=== PATIENT | male | born 1950 | race Caucasian/White ===

== ENCOUNTER 2017-09-30 12:39 | Inpatient (IN) | payer OTHER ==
[~2017-09-30] VITALS: Ht 190.5 cm; Wt 97.5 kg
[~2017-09-30 12:39] MED LIST: ACET-7568 PO; ADA60 PO; ASCO500C19 PO; BACL10TA4 PO; DOCU100C5 PO; FERR-20 PO; FURO20TA8 PO; HALO1TAB21 PO; LOSA25TA22 PO; PANT40VI IV; POTA10CE85 PO; [UNRECOGNIZED DRUG - CODE] PO
--- NOTE | 2017-09-30 12:40 | NUR ---
Patient BIBA BLS, transferred to bed 10. RN evaluating patient at bedside.
[2017-09-30 12:43] VITALS: BP 148/93
--- NOTE | 2017-09-30 12:45 | NUR ---
PATIENT GEOFFREY PRESENTS TO ED WITH ALOC, NECK TENDERNESS, DOES NOT REMEMBER FALLING FOUND ON THE FLOOR. NEURO CHECK PERRL, FOLLOWS SIMPLE COMMANDS. SKIN IS PINK/WARM/DRY; AAOX2 WITH EVEN AND STEADY GAIT; LUNGS CLEAR BL; HR EVEN AND REGULAR; VSS; PATIENT POSITIONED FOR COMFORT; HOB ELEVATED; BEDRAILS UP X2; BED DOWN. ER MD MADE AWARE OF PT STATUS.
[2017-09-30] MEDS ORDERED: NACL 0.9% 1,000 ML IV SCH (12:48)
--- NOTE | 2017-09-30 12:55 | NUR ---
Dr. Zelaya evaluating patient at bedside.
--- NOTE | 2017-09-30 13:01 | NUR ---
XRAY AT BEDSIDE
--- NOTE | 2017-09-30 13:09 | NUR ---
pt to radiology via [facility]
[2017-09-30 13:17] LABS: HEMOGLOBIN 14.9 g/dL (12.0-18.0); MEAN CORPUSCULAR HEMOGLOBIN 30 pg (27-31); MEAN CORPUSCULAR HGB CONC 33 g/dL (33-37); MEAN CORPUSCULAR VOLUME 89.9 fL (80-94); PLATELET COUNT (AUTO) 275 K/uL (140-450); RED BLOOD CELL COUNT(AUTO) 5.01 MIL/uL (4.20-6.10); RED CELL DISTRIBUTION WIDTH 13.7 % (11.6-13.7); WHITE BLOOD COUNT (AUTO) 20.6 K/uL (4.8-10.8)
--- NOTE | 2017-09-30 13:27 | NUR ---
returned from radiology via [facility]
[2017-09-30 13:32] LABS: MONOCYTES % (MANUAL) 5 % (5-12); PROTHROMBIN TIME 11.5 secs (10.8-13.4)
[2017-09-30 13:33] LABS: LYMPHOCYTES % (MANUAL) 5 % (20-46)
[2017-09-30 13:52] LABS: ALBUMIN 3.4 g/dL (3.4-5.0); ANION GAP 22.7 (8-16); CARBON DIOXIDE 19.5 mmol/L (21-32); TOTAL BILIRUBIN 0.8 mg/dL (0.0-1.0)
[2017-09-30 13:54] LABS: POTASSIUM 6.2 mmol/L (3.5-5.1)
[2017-09-30] MEDS ORDERED: DEXTROSE 50% 50 ML SYR IVP ONE (14:10)
[2017-09-30] MEDS ORDERED: ASPIRIN 81 MG TAB.CHEW PO ONE (14:10)
[2017-09-30] MEDS ORDERED: INSULIN REGULAR, HUMAN 100 UNIT/ML VIAL IV ONE (14:10)
--- NOTE | 2017-09-30 14:12 | NUR ---
TRISTAN, PT'S SISTER CALLED AND INQUIRED ABOUT PT. STATES SHE WILL COME TO SEE PT ONCE HE'S ADMITTED.
[2017-09-30] MEDS ORDERED: LEVOFLOXACIN 500 MG/D5W PREMIX 100 ML IV ONE (14:15)
--- NOTE | 2017-09-30 15:00 | NUR ---
Leyda melgar in [facility] - 09/30/17 at 1629 by MEDJ andrew would like to be called once patient is admitted - Cristopher Newton
[2017-09-30] MEDS: NACL 0.9% 1,000 ML IV SCH ×2 (15:09→20:49)
[2017-09-30] MEDS ORDERED: ACETAMINOPHEN 325 MG TAB PO PRN (15:10)
[2017-09-30] MEDS ORDERED: DOCUSATE SODIUM 100 MG GELCAP PO PRN (15:10)
[2017-09-30] MEDS ORDERED: ONDANSETRON 4 MG/2 ML VIAL IM/IVP PRN (15:10)
[2017-09-30] MEDS ORDERED: hePARIN / DEXT 5% PREMIX 250 ML IV SCH ×2 (15:20→18:00)
[2017-09-30] MEDS ORDERED: HEPARIN PER PHARMACY MC PRN ×2 (15:20→18:00)
[2017-09-30 15:28] LABS: APPEARANCE,URINE CLOUDY (CLEAR); BILIRUBIN,URINE 1+ (NEGATIVE); BLOOD, URINE 3+ (NEGATIVE); LEUKOCYTE ESTERASE ,URINE 2+ (NEGATIVE); NITRITE, URINE NEGATIVE (NEGATIVE); PH,URINE 5.5 (5.0-9.0); UGLUCOSE NEGATIVE (NEGATIVE)
[2017-09-30] MEDS ORDERED: MECLIZINE 25 MG TAB PO PRN ×2 (15:40→16:05)
[2017-09-30 16:17] LABS: CHOL/HDL RATIO 3.1 (1-4.5); FREE T4 (FREE THYROXINE) 1.22 ng/dL (0.76-1.46); MAGNESIUM 2.9 mg/dL (1.8-2.4); PHOSPHORUS 5.7 mg/dL (2.5-4.9); THYROID STIMULATING HORMONE 1.41 uIU/mL (0.34-3.74)
[2017-09-30 16:25] LABS: COLOR,URINE AMBER (YELLOW)
--- NOTE | 2017-09-30 16:28 | NUR ---
PATIENT BACK FROM CT
[2017-09-30 16:29] LABS: RBC,URINE 0-5 (RARE) /HPF (0-5); WBC,URINE TOO MANY TO COUNT /HPF (0-5)
--- NOTE | 2017-09-30 16:53 | NUR ---
Patient will be admitted to care of DR. ARMENTA. Admited to ICU FOR CONVENIENCE. Will go to BED 2. Belongings list completed. Report to DREW PALACIOS.
--- NOTE | 2017-09-30 17:05 | NUR ---
RECEIVED BEDSIDE REPORT FROM WATER RESOURCE ENGINEER, FOR CONTINUITY OF CARE. PATIENT IS AAOX3, ABLE TO FOLLOW COMMANDS AND MAKES NEEDS KNOWN. HX OF DEMENTIA. PATIENT SKIN IS WARM, DRY AND INTACT, REDNESS TO BUTTOCKS AND RIGHT HIP, AND SCAB WITH ECCHYMOSIS TO HIS RIGHT KNEE. HE HAS A PERIPHERAL IV SITE TO HIS LEFT HAND, 20 GAUGE, ASYMPTOMATIC, PATENT AND INTACT, WITH NS RUNNING AT 100ML/HR. HE IS ON ROOM AIR, CAP REFILL LESS THAN 3 SECS, SR ON MONITOR. HOB IS ELEVATED TO 30 DEGREES IN A LOW POSITION, CALL LIGHT WITHIN REACH, NO SIGNS OF ACUTE DISTRESS NOTED AT THIS TIME. WILL CONTINUE TO MONITOR
[2017-09-30] MEDS ORDERED: BACLOFEN 10 MG TAB PO PRN (18:10)
[2017-09-30] MEDS ORDERED: LOSA50TA39 PO (18:19)
[2017-09-30] MEDS ORDERED: SPIMDI INH (18:19)
[2017-09-30] MEDS ORDERED: METO50TE2 PO (18:19)
[2017-09-30] MEDS ORDERED: ASCO500T45 PO (18:19)
[2017-09-30] MEDS ORDERED: ADA90 PO (18:19)
[2017-09-30] MEDS ORDERED: MULT-1328 PO (18:19)
[2017-09-30] MEDS ORDERED: HYDR100T79 PO (18:19)
[2017-09-30] MEDS ORDERED: PANT40EC PO (18:19)
[2017-09-30] MEDS ORDERED: TRAM50TA1 PO (18:21)
[2017-09-30] MEDS ORDERED: traMADol 50 MG TAB PO PRN (18:25)
--- NOTE | 2017-09-30 18:28 | NUR ---
PATIENT'S SISTER AT BEDSIDE, UPDATED ON PATIENT'S CONDITION. NO SIGNS OF DISTRESS NOTED AT THIS TIME
[2017-09-30] MEDS ORDERED: DEXTROSE 50% 50 ML SYR IVP PRN (18:30)
[2017-09-30] MEDS ORDERED: INSULIN LISPRO SLIDING SCALE 100 UNITS/ML VIAL SUBQ PRN (18:30)
--- NOTE | 2017-09-30 18:40 | NUR ---
PATIENT'S BP IS 193/108, DR. ARMENTA AWARE, WILL FOLLOW UP ON ANY ORDERS.
--- NOTE | 2017-09-30 19:10 | NUR ---
ENDORSED BEDSIDE REPORT TO DIE TECHNICIAN RN, MENDY, FOR CONTINUITY OF CARE. PATIENT PRESENTS NO SIGNS OF ACUTE DISTRESS AT THIS TIME.
--- NOTE | 2017-09-30 19:30 | NUR ---
RECEIVED PT FROM DAY NURSE, NO ACUTE DISTRESS NOTED. WILL CONTINUE TO MONITOR.
--- NOTE | 2017-09-30 19:32 | NUR ---
PT AWAKE SITTING UP IN BED, SISTER @ BEDSIDE. PT AAOX2 S/P TBI SLOW SPEECH NOTED. PT FOLLOWING SIMPLE COMMANDS. LUNGS CLEAR/ DIMINISHED @ BASES. SR 90S NO EDEMA NOTED. ABD SOFT NON DISTENDED. PT INCONTINENT TO URINE. REDNESS NOTED TO BUTTOCKS AND BILATERAL KNEES. PERIPHERAL IV TO L HAND WITH NS IVF RUNNING. NO OTHER S/S OF ACUTE DISTRESS NOTED. WILL CONTINUE TO OBSERVE.
--- NOTE | 2017-09-30 19:45 | NUR ---
US TECH @ BEDSIDE.
[2017-09-30 20:00] VITALS: BP 177/71
[2017-09-30] MEDS ORDERED: hydrALAZINE 25 MG TAB PO SCH ×2 (20:00)
[2017-09-30] MEDS ORDERED: SODIUM POLYSTYRENE 15 GM/60 ML UDBTL PO SCH (20:00)
[2017-09-30] MEDS ORDERED: hydrALAZINE 25 MG TAB ONE (20:15)
[2017-09-30] MEDS: FERROUS SULFATE 325 MG TABEC PO SCH (20:44)
[2017-09-30] MEDS: hePARIN / DEXT 5% PREMIX 250 ML IV SCH (20:48)
[2017-09-30] MEDS: HALOPERIDOL 1 MG TAB PO SCH (21:00)
[2017-09-30] MEDS: BLOOD GLUCOSE MONITORING 1 DEV DEV FS SCH (21:06)
[2017-09-30] MEDS: HYDROcodone/APAP 7.5/325 MG 1 TAB PO PRN (21:09)
[2017-09-30] MEDS ORDERED: HALOPERIDOL IM 5 MG/ML VIAL ONE (21:45)
--- NOTE | 2017-09-30 21:45 | NUR ---
HEPARIN DRIP STARTED PER MD ORDER @ 2047. RUNNING @ 960 UNITS/HR. NO S/S OF ACUTE DRUG REACTION NOTED. NO BLEEDING NOTED. WILL CONTINUE TO MONITOR.
--- NOTE | 2017-09-30 21:50 | NUR ---
NOTIFIED DR. FLOREZ ABOUT NOT HAVING HALDOL PO. PT COMFORTABLE NO S/S OF AGITATION NOTED. MD AWARE, MD STATED TO HOLD DOSE TONIGHT AND GIVE TOMORROW PER EMAR ORDERS. WILL CONTINUE TO OBSERVE.
--- NOTE | 2017-09-30 22:45 | NUR ---
PT PLACED ON 2L O2 VIA NASAL CANNULA.
[2017-09-30] MEDS: MORPHINE SULFATE 4 MG/ML SYR IVP PRN (23:42)
[2017-10-01] VITALS (7 sets, daily range): BP systolic 139–191; BP diastolic 60–117
--- NOTE | 2017-10-01 00:15 | NUR ---
PT ASLEEP IN BED; NO S/S OF ACUTE DISTRESS NOTED. WILL CONTINUE TO OBSERVE.
--- NOTE | 2017-10-01 03:36 | NUR ---
RECEIVED PTT RESULT 69, THERAPEUTIC ON HEPARIN DRIP. NO CHANGES. WILL CONTINUE TO MONITOR.
--- NOTE | 2017-10-01 06:00 | NUR ---
MD @ BEDSIDE. NO ACUTE DISTRESS NOTED. WILL CONTINUE TO MONITOR.
[2017-10-01] MEDS: PANTOPRAZOLE 40 MG TABEC PO SCH (06:53)
[2017-10-01] MEDS: BLOOD GLUCOSE MONITORING 1 DEV DEV FS SCH ×4 (07:17→20:13)
[2017-10-01 07:22] LABS: HEMATOCRIT 41.1 % (36-52); HEMOGLOBIN 13.5 g/dL (12.0-18.0); MEAN CORPUSCULAR HEMOGLOBIN 30 pg (27-31); MEAN CORPUSCULAR HGB CONC 33 g/dL (33-37); MEAN CORPUSCULAR VOLUME 89.9 fL (80-94); PLATELET COUNT (AUTO) 231 K/uL (140-450); RED BLOOD CELL COUNT(AUTO) 4.57 MIL/uL (4.20-6.10); RED CELL DISTRIBUTION WIDTH 13.7 % (11.6-13.7); WHITE BLOOD COUNT (AUTO) 20.7 K/uL (4.8-10.8)
--- NOTE | 2017-10-01 07:28 | NUR ---
REPORT GIVEN TO DAY NURSE. NO ACUTE DISTRESS. WILL CONTINUE TO MONITOR.
--- NOTE | 2017-10-01 07:30 | NUR ---
RECEIVED BEDSIDE REPORT. PT ABLE TO OPEN EYES WHILE DOING INITIAL ASSESSMENT. BEDSIDE MONITOR SHOWS [facility] O2 NC 2L/MIN, O2 SAT 94%. IVS TO LEFT HAND RUNNING NS AT 60 MLS/HR AND HEPARIN 960 UNITS/HR SEPARATELY. BOTH SITE INTACT AND PATENT. SKIN NON INTACT DUE TO PT HAD FALL YESTERDAY. HOB ELEVATED 30 DEGREES WITH LOW BED POSITION. CALL LIGHT IN REACH, WILL CONTINUE TO MONITOR.
[2017-10-01 07:56] LABS: ANION GAP 20.7 (8-16); CARBON DIOXIDE 19.9 mmol/L (21-32); POTASSIUM 5.6 mmol/L (3.5-5.1)
[2017-10-01] MEDS ORDERED: metFORMIN 500 MG TAB PO SCH (08:00)
[2017-10-01 08:04] LABS: MAGNESIUM 2.6 mg/dL (1.8-2.4); PHOSPHORUS 6.3 mg/dL (2.5-4.9)
[2017-10-01] MEDS: ASCORBIC ACID 500 MG TAB PO SCH (08:19)
[2017-10-01] MEDS: ASPIRIN 81 MG TAB.CHEW PO SCH (08:19)
[2017-10-01] MEDS: FERROUS SULFATE 325 MG TABEC PO SCH (08:20)
[2017-10-01] MEDS: NIFEdipine 90 MG TABER PO SCH (08:20)
[2017-10-01 08:28] LABS: BASOPHILS % (MANUAL) 0 % (0-2); EOSINOPHILS % (MANUAL) 0 % (0-4); LYMPHOCYTES % (MANUAL) 7 % (20-46); MONOCYTES % (MANUAL) 8 % (5-12)
[2017-10-01] MEDS: METOPROLOL SUCCINATE 50 MG TABER PO SCH (08:30)
[2017-10-01] MEDS ORDERED: NON-FORMULARY ITEM (Potassium Chloride 1 CAP) PO SCH (09:00)
[2017-10-01] MEDS ORDERED: NON-FORMULARY ITEM (Tiotropium Bromide* (Spiriva Mdi*) 1 CAP) INH SCH (09:00)
[2017-10-01] MEDS ORDERED: ATORVASTATIN 20 MG TAB PO SCH (09:00)
[2017-10-01] MEDS ORDERED: POTASSIUM CHLORIDE 10 MEQ TABER PO SCH (09:00)
[2017-10-01] MEDS ORDERED: LOSARTAN 50 MG TAB PO SCH (09:00)
[2017-10-01] MEDS ORDERED: NON-FORMULARY ITEM (Multivitamin with Minerals (Multivitamins with Minerals) 1 TAB) PO SCH (09:00)
[2017-10-01] MEDS ORDERED: NON-FORMULARY ITEM (Hydralazine HCl (Hydralazine Hydrochloride) 25 MG) PO SCH (09:00)
--- NOTE | 2017-10-01 09:00 | NUR ---
HOLD DUE MEDS HALDO 1 MG DUE TO PT IS SLEEPY, CHARGE NURSE AWARE.
--- NOTE | 2017-10-01 10:05 | NUR ---
PT IS MORE AWAKE ALERT AT THIS TIME.
--- NOTE | 2017-10-01 10:15 | NUR ---
Received critical report doppler study ultrasound at 1013, reported to dr. Mehta.
[2017-10-01] MEDS: hydrALAZINE 25 MG TAB PO SCH ×3 (10:54→16:52)
[2017-10-01] MEDS: HALOPERIDOL 1 MG TAB PO SCH ×2 (10:55→20:10)
[2017-10-01] MEDS: MULTIVITAMIN/MINERALS 1 TAB PO SCH (10:55)
--- NOTE | 2017-10-01 10:55 | NUR ---
DID NOT GIVE K DUR 10 MG, WASTED.
[2017-10-01] MEDS ORDERED: SODIUM POLYSTYRENE 15 GM/60 ML UDBTL PO SCH ×2 (11:30→19:00)
[2017-10-01] MEDS ORDERED: IPRATROPIUM 0.02% 0.5 MG/2.5 ML NEBU INH SCH (11:30)
--- NOTE | 2017-10-01 11:45 | NUR ---
TOLD PT WE NEED TO INSERT MELGAR CATH TO MONITOR INTAKE AND OUT PUT, PT DOES NOT WANT TO INSERT, BENEFITS AND RISKS EXPLAINED TO PT, PT STILL DOES NOT WANT TO INSERT F/C . PT'S SISTER AT BEDSIDE.
[2017-10-01] MEDS ORDERED: hydrALAZINE 20 MG/ML VIAL IVP SCH (12:00)
--- NOTE | 2017-10-01 12:25 | NUR ---
DR. WILEY CALLED IN, NOTIFIED DR. WILEY PT DOES NOT WANT TO INSERT MELGAR CATH,PT'S SISTER ALSO HAD CONVERSATION WITH DR. WILEY. AFTER THAT, PT'S SISTER VERBALIZED UNDERSTANDING IT IS IMPORTANT TO INSERT MELGAR CATHETER.
--- NOTE | 2017-10-01 12:40 | NUR ---
EXPLAINED TO PT AGAIN REGARDING THE IMPORTANCE OF INSERTING F/C. TOLD PT I WILL TRY MY BEST TO BE GENTLE. PT AGREES TO INSERT AT THIS TIME. STERIL SKILL APPLIED .CLOUDY AND LIGHT BLOODY URINE NOTED. NOTIFIED DR. ARMENTA AND CHARGE NURSE.
[2017-10-01] MEDS: CLINDAMYCIN PHOS. 600MG/D5W PM 50 ML IV SCH ×2 (13:01→20:10)
[2017-10-01] MEDS ORDERED: METOPROLOL 5 MG/5 ML VIAL IV SCH (14:09)
--- NOTE | 2017-10-01 14:51 | NUR ---
ASSISTANT READING TEACHER AT BEDSIDE TO HAVE CONVERSATION WITH PT'S SISTER AND NEPHEW.
--- NOTE | 2017-10-01 15:24 | NUR ---
DR. WILEY IN TO SEE PT, WILL FOLLOW UP.
[2017-10-01] MEDS ORDERED: FUROSEMIDE 40 MG/4 ML VIAL IVP SCH ×2 (15:43→21:30)
[2017-10-01 15:44] LABS: CKMB RELATIVE INDEX 0.4 (0.0-2.5)
--- NOTE | 2017-10-01 16:23 | NUR ---
PT RESTING QUIETLY AT THIS MOMENT, BP 151/92, HR 81, O2 SAT 93%, FAMILY LEFT.
[2017-10-01] MEDS: SODIUM BICARBONATE 8.4% 100 MEQ in NACL 0.45% 1,000 ML IV SCH (16:47)
[2017-10-01 17:37] LABS: ANION GAP 21.4 (8-16); CARBON DIOXIDE 20.8 mmol/L (21-32); POTASSIUM 5.2 mmol/L (3.5-5.1)
[2017-10-01 17:43] LABS: CREATININE 5.9 mg/dL (0.7-1.3)
--- NOTE | 2017-10-01 18:21 | NUR ---
CALLED IN, UPDATED LAB REPORT K 5.9, PT DID NOT HAVE BM DURING DAY SHIFT AFTER KAYEXALATE GIVEN. DR. WILEY HAD CONVERSATION WITH PT'S NEPHEW, PER PT'S NEPHEW, HE HAD COMMUNICATION WITH PT'S SISTER ( HIS MOTHER), THEY DECIDED THEY DON'T WANT PT HAS DIALYSIS. DR. SONG ALSO IN TO TALK WITH PT'S FAMILY REGARDING DIALYSIS, PT'S FAMILY REFUSED.
--- NOTE | 2017-10-01 19:27 | NUR ---
RECEIVED REPORT FROM DAY NURSE. NO ACUTE DISTRESS NOTED. WILL CONTINUE TO MONITOR. HEPARIN DRIP @ 960 UNITS/HR. NA BICARB IVF RUNNING @ 130ML/HR.
--- NOTE | 2017-10-01 19:50 | NUR ---
PT AAOX1 FOLLOWING SIMPLE COMMANDS. LUNGS CLEAR, SR 90S NO EDEMA NOTED. R LEG ERYTHEMA NOTED, MD AWARE. ABD SOFT NON DISTENDED, TOLERATING PO INTAKE. MELGAR CATH IN PLACE, SEDIMENT YELLOW URINE. R LEG SCAB AND REDNESS OF R HIP AND BUTTOCKS NOTED. IV HEPARIN RUNNING @ 960 UNITS/HR AND NA BICARB @ 130 ML/HR. NO ACUTE DISTRESS NOTED. WILL CONTINUE TO MONITOR.
[2017-10-01] MEDS: hePARIN / DEXT 5% PREMIX 250 ML IV SCH (20:25)
[2017-10-01] MEDS ORDERED: MORPHINE SULFATE IV SCH (20:25)
[2017-10-01] MEDS ORDERED: NACL 0.9% IV SCH (20:25)
--- NOTE | 2017-10-01 21:25 | NUR ---
SPOKE WITH DR WILEY REGARDING PT STATUS NEW ORDERS. RECEIVED SEE CHART FOR FURTHER DETAILS
--- NOTE | 2017-10-01 22:15 | NUR ---
SPOKE WITH TRISTAN REGARDING CODE STATUS, SISTER TRISTAN AGREEABLE FOR DNR STATUS; HOWEVER DOES NOT WANT PALLIATIVE CARE/COMFORT MEASURES AT THIS TIME.
--- NOTE | 2017-10-01 22:35 | NUR ---
INFORMED DR. FLOREZ ABOUT SISTER TRISTAN DESIRE TO HAVE ОЛЬГА ON DNR CODE STATUS BUT DOES NOT WANT COMFORT MEASURES AT THIS TIME. AWARE. MD WILL D/C MORPHINE CHRISTINE
[2017-10-02] VITALS: BP 154/91
[2017-10-02] MEDS: SODIUM BICARBONATE 8.4% 100 MEQ in NACL 0.45% 1,000 ML IV SCH ×4 (00:01→16:59)
[2017-10-02 00:38] LABS: POTASSIUM 4.4 mmol/L (3.5-5.1)
[2017-10-02 00:39] LABS: ANION GAP 17.8 (8-16); CARBON DIOXIDE 22.6 mmol/L (21-32)
[2017-10-02 00:43] LABS: CREATININE 6.3 mg/dL (0.7-1.3)
--- NOTE | 2017-10-02 00:50 | NUR ---
INFORMED DR WILEY ABOUT ELEVATED BUN/CYLINDER DYER. AND CURRENT INTAKE/OUTPUT. MD AWARE. K+ WNL. AWARE NO NEW ORDERS WILL CONTINUE TO MONITOR.
--- NOTE | 2017-10-02 02:30 | NUR ---
PT ASLEEP RESTING COMFORTABLY NO S/S OF ACUTE DISTRESS WILL CONTINUE TO OBSERVE
[2017-10-02 04:00] VITALS: BP 152/91
--- NOTE | 2017-10-02 04:00 | NUR ---
AM CARE DONE. LINEN CHANGED. NO S/S OF ACUTE DISTRESS NOTED. WILL CONTINUE TO OBSERVE.
[2017-10-02] MEDS: CLINDAMYCIN PHOS. 600MG/D5W PM 50 ML IV SCH ×3 (05:32→20:50)
--- NOTE | 2017-10-02 06:00 | NUR ---
PT HAD VTACH X7 BEATS PT ASYMPTOMATIC; DR. FLOREZ MADE AWARE. WILL CONTINUE TO MONITOR.
[2017-10-02 06:07] LABS: BASOPHILS % (AUTO) 0.1 % (0.0-2.0); HEMATOCRIT 34.4 % (36-52); HEMOGLOBIN 11.5 g/dL (12.0-18.0); LYMPHOCYTES # (AUTO) 0.8 K/uL (2.0-11.5); LYMPHOCYTES % (AUTO) 5.7 % (20.5-51.1); MEAN CORPUSCULAR HEMOGLOBIN 30 pg (27-31); MEAN CORPUSCULAR HGB CONC 34 g/dL (33-37); MEAN CORPUSCULAR VOLUME 88.9 fL (80-94); MONOCYTES % (AUTO) 7.5 % (1.7-9.3); NEUTROPHILS # (AUTO) 11.9 K/uL (1.8-7.7); NEUTROPHILS % (AUTO) 86.7 % (42.2-75.2); PLATELET COUNT (AUTO) 216 K/uL (140-450); RED BLOOD CELL COUNT(AUTO) 3.87 MIL/uL (4.20-6.10); RED CELL DISTRIBUTION WIDTH 13.7 % (11.6-13.7); WHITE BLOOD COUNT (AUTO) 13.7 K/uL (4.8-10.8)
[2017-10-02] MEDS: BLOOD GLUCOSE MONITORING 1 DEV DEV FS SCH ×4 (06:32→21:15)
[2017-10-02] MEDS: PANTOPRAZOLE 40 MG TABEC PO SCH (06:32)
[2017-10-02 07:17] LABS: MAGNESIUM 2.7 mg/dL (1.8-2.4)
[2017-10-02 07:20] LABS: ANION GAP 20.6 (8-16); CARBON DIOXIDE 21.3 mmol/L (21-32); POTASSIUM 3.9 mmol/L (3.5-5.1)
[2017-10-02 07:22] LABS: CREATININE 6.6 mg/dL (0.7-1.3)
--- NOTE | 2017-10-02 07:31 | NUR ---
RECEIVED REPORT FROM NIGHT RN FOR CONTINUITY OF CARE. Addendum: 10/02/17 at 0906 by Francoise Alford RN PATIENT IS ASLEEP AT THIS TIME, BUT EASILY AROUSABLE BY NAME. SKIN WARM TO TOUCH WNL, TOENAILS ARE LONG AND THICKENED, NO EDEMA, WITH HAIR GROWTH AND FAINT BILATERAL PEDAL PULSES. R HAND PERIPHERAL IV PATENT AND INTACT TO 1/2 NS WITH 2 AMPS BICARB RUNNING. LEFT HAND PERIPHERAL IV PATENT AND INTACT TO HEPARIN AT 960 UNITS/HR. FC IN PLACE PATENT AND INTACT TO CLEAR YELLOW URINE IN MODERATE AMOUNT. ON AT 2LPM/NC. PATIENT IS ORIENTED TO PLACE AND NAME, BUT NOT TO DATE AND TIME. ABLE TO FOLLOW SIMPLE COMMANDS. ABLE TO MAKE HIS NEEDS KNOWN. CALL LIGHT WITHIN REACH. SAFETY MEASURES IN PLACE. WILL CONTINUE TO MONITOR PATIENT.
--- NOTE | 2017-10-02 07:40 | NUR ---
REPORT GIVEN TO DAY NURSE, NO ACUTE DISTRESS NOTED.
[2017-10-02 07:55] LABS: PHOSPHORUS 10.3 mg/dL (2.5-4.9)
[2017-10-02 08:00] VITALS: BP 121/68
[2017-10-02] MEDS: LEVOFLOXACIN 500 MG/D5W PREMIX 100 ML IV SCH (08:10)
[2017-10-02] MEDS: MULTIVITAMIN/MINERALS 1 TAB PO SCH (08:10)
[2017-10-02] MEDS: NIFEdipine 90 MG TABER PO SCH (08:11)
[2017-10-02] MEDS: HALOPERIDOL 1 MG TAB PO SCH ×2 (08:14→20:51)
[2017-10-02] MEDS: hydrALAZINE 25 MG TAB PO SCH ×3 (08:14→17:20)
[2017-10-02] MEDS: ASPIRIN 81 MG TAB.CHEW PO SCH (08:14)
[2017-10-02] MEDS: METOPROLOL SUCCINATE 50 MG TABER PO SCH (08:15)
[2017-10-02] MEDS: ASCORBIC ACID 500 MG TAB PO SCH (08:15)
--- NOTE | 2017-10-02 09:03 | NUR ---
PATIENT TAKEN TO CT FOR CT SCAN. Addendum: 10/02/17 at 1748 by Francoise Alford RN WRONG ENTRY
--- NOTE | 2017-10-02 09:15 | NUR ---
PATIENT CAME BACK FROM CT. HOOKED BACK UP TO MONITOR. WILL KEEP MONITORING PATIENT. Addendum: 10/02/17 at 1748 by Francoise Alford RN WRONG ENTRY
[2017-10-02] MEDS: CALCIUM ACETATE 667 MG TAB PO SCH ×3 (09:43→17:20)
--- NOTE | 2017-10-02 10:51 | NUR ---
PATIENT IS RESTING QUIETLY AT THIS TIME. NO COMPLAINTS OF PAIN MADE.
--- NOTE | 2017-10-02 11:19 | NUR ---
PATIENT HAS BEEN SCREENED AND CATEGORIZED HIGH NUTRITION RISK. PATIENT WILL BE SEEN WITHIN 1-2 DAYS OF ADMISSION. 10/01/17 - 10/02/[address]
--- NOTE | 2017-10-02 11:20 | NUR ---
PATIENT HAS BEEN SCREENED AND CATEGORIZED LOW NUTRITION RISK. PATIENT WILL BE SEEN WITHIN 7 DAYS OF ADMISSION. 10/07/[address] Addendum: 10/02/17 at [address] PLEASE DISREGARD ABOVE NOTE; ENTERED IN WRONG PATIENT. KIARRA QUIJANO RD
[2017-10-02 12:00] VITALS: BP 130/87
--- NOTE | 2017-10-02 13:35 | NUR ---
Anesthesiology Physician notes: I call Rayray Christ at I spoke to [facility] staff to discuss and confirm Patient's information. Per [facility] Patient has been residing at [facility] for about 2 years, patient gets his medications managed by the staff and is provided with meals and has also a caregiver that cares for his basic needs. Per Jody patient is able to return when he is stable and ready for discharge from [facility]. I thanked her for the information and ended the call.
--- NOTE | 2017-10-02 15:07 | NUR ---
10/02/17 RD INITIAL ASSESSMENT COMPLETED PLEASE REFER TO NUTRITION ASSESSMENT UNDER CARE ACTIVITY FOR ESTIMATED NUTRITIONAL NEEDS. 1. CONTINUE CCHO 60 GM DIET TOLERATED 2. RECOMMEND ADDING RENAL DIET 3. RD TO FOLLOW-UP 3-5 DAYS, MODERATE RISK MELODIE BATES, RD
[2017-10-02 16:00] VITALS: BP 136/86
[2017-10-02] MEDS ORDERED: LORazepam 1 MG TAB PO PRN (17:55)
[2017-10-02] MEDS ORDERED: MORPHINE SULFATE 100 MG in NACL 0.9% 90 ML IV SCH (18:30)
--- NOTE | 2017-10-02 18:50 | NUR ---
TRANSFERRED PATIENT TO TELE ROOM 122B. PATIENT IN STABLE CONDITION. REPORT GIVEN TO LENORE RUSSELL FOR CONTINUITY OF CARE.
--- NOTE | 2017-10-02 19:00 | NUR ---
PT TRANSFERRED TO FLOOR VIA GURNEY FROM ICU WITH 2 PHYSICAL SECURITY MANAGER'S. PT TRANSFERRED TO BED AND V/S ARE FOLLOWS T 98.6 P 85 B/P 138/86 R 20 02 95% WITH 4 LITERS VIA N/C. PT HAS 16fR MELGAR CATHETER DRAINING YELLOW URINE A SMALL AM'T OF BLOOD AND SEDIMENT NOTED IN URINE. PT IS AWAKE AND ALERT BUT NOT TALKING AT THIS TIME. EYES OPEN SPONTANOUSLY AND THERE APPEARS TO BE A SMALL AMOUNT OF YELLOW DRAINAGE AROUND THE SCLERA OF LEFT EYE. PT HAS 2 PERIPHERRAL IV SITES ONE ON BACK OF LEFT HAND AND ONE ON BACK OF RIGHT HAND BOTH ARE 20G. NO S/S OF DISTRESS NOTED FORM PT AT THIS TIME. AT BEDSIDE EVALUATING PT.
--- NOTE | 2017-10-02 19:35 | NUR ---
TRANSFER OF CARE FROM DAY SHIFT TO HEALTH INFORMATICS SPECIALIST CHRISTOFER RUSSELL.
--- NOTE | 2017-10-02 19:36 | NUR ---
RECEIVED REPORT FROM DAY SHIFT NURSE. PT IN BED,AAOX2. ON O2 AT 3L/MIN VIA NC. NO DISTRESS NOTED. IV TO LEFT HAND #20G AND RIGHT HAND #20, PATENT AND INTACT. PT HAS ABRASION TO RIGHT KNEE. RIGHT BUTTOCK SCAB, RIGHT HIP REDNESS, RIGHT LEG DVT. SAFETY PRECAUTION IN PLACE. CALL LIGHT WITHIN REACH.
[2017-10-02 20:00] VITALS: BP 134/84
--- NOTE | 2017-10-02 21:00 | NUR ---
DUE MEDS GIVEN. PT TOLERATED WELL. PT HAS MELGAR CATH DRAINING YELLOW URINE WITH SMALL SEDIMENTS NOTED. NO C/O PAIN. NO RESP DISTRESS NOTED.
--- NOTE | 2017-10-02 21:45 | NUR ---
ASSISTED MECHANICAL ADJUSTER CLEANED AND CHANGED THE PT. TURNED AND REPOSITIONED Q2H. NO DISTRESS NOTED.
[2017-10-03] VITALS: BP 144/81
--- NOTE | 2017-10-03 00:04 | NUR ---
CHECKED V/S. BP 144/81, HR 92, RR 18, 02 SAT 92% . PT WAS STARING AT ME. I ASKED IF HE'S IN PAIN, HE SAID "NO", I ASKED HIM IF HE'S HAVING SOB, HE ANSWERED "YES". INCREASED O2 TO 4L/MIN VIA NC, HOB ELEVATED AND CALLED RT. RT CAME AND CHECKED PT, 02 SAT 94%. PT WAS ASKED IF HE'S HAVING SOB, HE SAID "NO". PT TURNED AND REPOSITIONED. WILL CONTINUE TO MONITOR.
--- NOTE | 2017-10-03 01:00 | NUR ---
T O2 SAT 94%. NO SOB NOTED. PT LYING COMFORTABLY IN BED. FALL PRECAUTION IN PLACE.
[2017-10-03] MEDS: SODIUM BICARBONATE 8.4% 100 MEQ in NACL 0.45% 1,000 ML IV SCH ×2 (01:30→14:20)
--- NOTE | 2017-10-03 03:20 | NUR ---
PT SLEEPING BUT EASILY AROUSABLE. NO S/S OF DISTRESS. PT KEPT COMFORTABLE. FALL PRECAUTION IN PLACE.
[2017-10-03 04:00] VITALS: BP 140/86
[2017-10-03] MEDS: CLINDAMYCIN PHOS. 600MG/D5W PM 50 ML IV SCH ×3 (05:14→20:25)
--- NOTE | 2017-10-03 05:30 | NUR ---
PT AWAKE, LYING COMFORTABLY IN BED. NO DISTRESS NOTED. FALL PRECAUTION IN PLACE.
[2017-10-03] MEDS: PANTOPRAZOLE 40 MG TABEC PO SCH (05:55)
--- NOTE | 2017-10-03 06:15 | NUR ---
DUE MEDS GIVEN. PT TOLERATED WELL. BS CHECKED 115.
[2017-10-03] MEDS: BLOOD GLUCOSE MONITORING 1 DEV DEV FS SCH ×4 (06:30→21:28)
--- NOTE | 2017-10-03 07:15 | NUR ---
ENDORSED PT TO DAY SHIFT NURSE. PT IN STABLE CONDITION.
--- NOTE | 2017-10-03 07:16 | NUR ---
RECEIVED PT FROM PM NURSE AT BEDSIDE FOR CONTINUITY OF CARE. PT A0X2. INTRODUCED SELF AND UPDATED BOARD.PT ON NC@4LPM. PT ON TELE. IV ON LFT HAND 20G SL, RT HAND 20G INFUSING HALF NS WITH BICARB @30 ML/HR. LFT AC 20G SL.PT S/P FALL. ABRASION ON RT KNEE, RT BUTTOCKS SCABS, RT HIP REDNESS, DVT AT RT LEG. LBM 10/01/17. HOSPICE EVAL PENDING. VS WITHIN NORMAL RANGE. DENIES PAIN. WILL CONTINUE TO MONITOR PT.
[2017-10-03 08:00] VITALS: BP 142/80
[2017-10-03] MEDS: CALCIUM ACETATE 667 MG TAB PO SCH ×3 (09:23→16:48)
[2017-10-03] MEDS: ASPIRIN 81 MG TAB.CHEW PO SCH (09:24)
[2017-10-03] MEDS: METOPROLOL SUCCINATE 50 MG TABER PO SCH (09:24)
[2017-10-03] MEDS: MULTIVITAMIN/MINERALS 1 TAB PO SCH (09:25)
[2017-10-03] MEDS: ASCORBIC ACID 500 MG TAB PO SCH (09:25)
[2017-10-03] MEDS: HALOPERIDOL 1 MG TAB PO SCH ×2 (09:25→20:25)
[2017-10-03] MEDS: hydrALAZINE 25 MG TAB PO SCH ×3 (09:26→16:48)
--- NOTE | 2017-10-03 09:30 | NUR ---
ADMINISTERED MORNING MEDS. CALLED PHARMACY FOR MISSING MED. PHARMACIST BROUGHT MED TO FLOOR. PT TOLERATED WELL. WILL CONTINUE TO MONITOR PT.
[2017-10-03] MEDS: NIFEdipine 90 MG TABER PO SCH (09:31)
--- NOTE | 2017-10-03 09:50 | NUR ---
Patient's niece Sho Norman at contacted me stating that she has been talking to her mother Candice Chadwick (Patient's sister who is patient's primary healthcare decision maker). Per Sho her mother is overwhelmed and seems confused with what hospice services will be provided for patient and the family. Per sho She and her brother are assisting their mother with all patient's care and medical needs and will like to be present when their mother talks to hospice to be clear and make sure services are well explained to their mother and assist her if she gets confused. Per Sho she will like to be called and be in the meeting assisting her mother during hospice assessment. These sql report writer explained the process and referral to hospice, I asked if there was any preference on agency and Sho stated not having a preference at all. I verbalized understanding and inform her that when referral to hospice is made her number will be also provided so they can coordinate and all can meet to discuss Hospice care and services. She agreed and Thanked me for my assistance.
--- NOTE | 2017-10-03 11:10 | NUR ---
1048 CALLED [facility] [phone] AND SPOKE WITH EDINSON AND PROVIDED INFORMATION ON REFERRAL. PROVIDED HER WITH PT'S NIECE'S NAME JOSE LYLE AND REQUESTED THAT SHE BE CONTACTED TO SET UP A MEETING PER JOSE'S REQUEST. INFORMATION FAXED TO [phone]. 1109 PER CALL BACK FROM EDINSON A MEETING HAS BEEN SCHEDULED WITH FAMILY AT 1600 TODAY JOSE STATED THAT OTHER FAMILY MEMBERS WISHED TO BE PRESENT FOR MEETING.
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
--- NOTE | 2017-10-03 12:09 | NUR ---
SPOKE TO SISTER ,TRISTAN, EXPLAINED TO HER OF PT. SKIN CONDITION AND HI RISK OF FURTHER SKIN BREAKS, ALL INTERVENTIONS FOR PRESSURE INJURY PREVENTIONS IN PLACE.
--- NOTE | 2017-10-03 14:02 | NUR ---
PT POSITIONED TO RT.SIDE. RELATIVES AT THE BEDSIDE. PT STABLE AT TIME. SAFETY MEASURE IN PLACE. WILL CONTINUE TO MONITOR PT.
[2017-10-03 16:00] VITALS: BP 140/76
--- NOTE | 2017-10-03 16:00 | NUR ---
CORONA, HOSPICE AGENCY REP IS HERE TO MEET WITH FAMILY TO DISCUSS HOSPICE PLACEMENT.
--- NOTE | 2017-10-03 19:15 | NUR ---
ENDORSED PT TO PM NURSE AT BEDSIDE FOR CONTINUITY OF CARE. PT IN STABLE CONDITION.
--- NOTE | 2017-10-03 19:16 | NUR ---
RECEIVED PT AWAKE, VERBALLY RESPONSIVE, AAOX2, ABLE TO MAKE NEEDS KNOWN, ON O2 AT 2L/NC, NO SOB NOTED, IVF INFUSING WELL, MELGAR CATH IN PLACE DRAINING WELL, SAFETY MEASURES IN PLACE, SIDE RAILS UP AND BED ALARM ON, CONTINUE TO REPOSITION Q2H AND OFFLOAD PRESSURE, CALL LIGHT WITHIN REACH.
--- NOTE | 2017-10-03 20:11 | NUR ---
RECEIVED PATIENT ON 3L NC. O2 SAT 94%. NO RESPIRATORY DISTRESS NOTED AT THIS TIME. WILL CONTINUE TO MONITOR.
[2017-10-03] MEDS: HYDROcodone/APAP 7.5/325 MG 1 TAB PO PRN (22:44)
--- NOTE | 2017-10-03 23:35 | NUR ---
PT SLEEPING, EASILY AROUSABLE, VITAL SIGNS STABLE, SAT-92% ON O2 AT 4L/NC, NO SIGNS OF SOB NOTED, MONITORED CLOSELY.
[2017-10-04] VITALS: BP 123/67
--- NOTE | 2017-10-04 01:03 | NUR ---
ROUNDS MADE, PT REQUESTING FOR JUICE, APPLE JUICE TOLERATED, CONTINUE TO REPOSITION Q2H AND OFFLOAD PRESSURE AREAS, MONITORED CLOSELY.
--- NOTE | 2017-10-04 03:25 | NUR ---
PT VOMITED MODERATE AMOUNT OF LIGHT BROWN VOMITUS, MEDICATED PRN WITH ZOFRAN, LINEN AND GOWN CHANGED, VITAL SIGNS TAKEN, BP-146/80, HR-99, RR-28, SAT-74%, TEMP-97.8, PAGED RT AND INCREASED O2 TO 6L/NC, PUT OH HIGH FOWLERS POSITION, SAT WENT UP ONLY TO 76%, RT GISEL AND SYEDA PUT PT ON NON-REBREATHER MASK 15L, SAT WENT UP TO 85%, BLOOD SUGAR-129, MONITORED CLOSELY.
--- NOTE | 2017-10-04 03:30 | NUR ---
CALLED TO BEDSIDE BY RN PER PATIENT DESATURATION. O2 SAT 75%. RN AT BEDSIDE. PLACED PATIENT ON NONREBREATHER. O2 SAT 85%. WILL CONTINUE TO MONITOR.
--- NOTE | 2017-10-04 03:40 | NUR ---
PT VOMITED AGAIN LARGE AMOUNT OF BROWNISH VOMITUS, DR CABEZAS MADE, WILL SEE THE PT, RT SUCTIONED THE PT WITH ESTRELLITA, SAT-90% AT THIS TIME, MAINTAINED HOB ELEVATED.
--- NOTE | 2017-10-04 03:45 | NUR ---
PATIENT VOMITED FOR SECOND TIME. ORALLY SUCTIONED PATIENT. RN AT BEDSIDE. REPLACED NONREBREATHER. WILL CONTINUE TO MONITOR PATIENT.
--- NOTE | 2017-10-04 03:52 | NUR ---
DR CABEZAS IN THE ROOM ASSESSING THE PT, PT SAT-92% AT THIS TIME VIA CONTINUOUS PULSE OX, ON 15L NON-REBREATHER MASK, PT AWAKE AND VERBALLY RESPONSIVE, PER DR CABEZAS TO CLOSELY MONITOR THE PT AND INFORMED HIM IF THE PT DESATURATES AGAIN.
[2017-10-04] MEDS: CLINDAMYCIN PHOS. 600MG/D5W PM 50 ML IV SCH (04:16)
--- NOTE | 2017-10-04 04:30 | NUR ---
PT TAKES OFF PULSE OX AND MASK, SAT GOES DOWN TO 81%, PUT BACK THE MASK, EDUCATE PT THE NEED FOR THE MASK, SAT WENT UP TO 87% AFTER SEVERAL MINUTES, MONITORED CLOSELY.
--- NOTE | 2017-10-04 04:49 | NUR ---
PT SAT-82%, HR-111, LABORED BREATHING NOTED, PT AWAKE, NOTIFIED DR CABEZAS, WILL ORDER PRN BREATHING TX, NOTIFIED RT.
[2017-10-04] MEDS ORDERED: ALBUTEROL SULFATE/IPRATROPIU 3 ML SOL IH PRN (04:50)
[2017-10-04] MEDS ORDERED: ALBUTEROL SULFATE/IPRATROPIU 3 ML SOL IH ONE (04:55)
--- NOTE | 2017-10-04 05:00 | NUR ---
SAT-72%, HR-119, LABORED BREATHING, BREATHING TX INITIATED BY RT.
--- NOTE | 2017-10-04 05:05 | NUR ---
PRN BREATHING TX ADMINISTERED PER MD ORDER. BREATH SOUNDS COARSE, DIMINISHED WITH WHEEZING. LABORED BREATHING. WILL CONTINUE TO MONITOR.
--- NOTE | 2017-10-04 05:07 | NUR ---
PT SAT-76% AFTER BREATHING TREATMENT, HR-127, BP-169/73, RR-32, PT AWAKE, LABORED BREATHING, SAT CONTINUED TO DROP AT 70-72%, MAINTAINED ON NON-REBREATHER MASK 15L.
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
--- NOTE | 2017-10-04 05:25 | NUR ---
DR CABEZAS TO CALL [facility], CALLED [facility] AND SPOKE TO MICHEAL STORAGE MANAGEMENT ARCHITECT, UPDATED ON PT'S CONDITION, SHE CALLED ADMISSION DEPARTMENT, TOLD ME THAT A ROVING WINDER FROM ADMISSION DEPT WILL CONTACT ME REGARDING PT'S CONDITION.
--- NOTE | 2017-10-04 05:45 | NUR ---
PT SEEN WITH EYES CLOSED, OPEN EYES TO TOUCH, SAT-66%, HR-129, RR-36, BP-164/89, CONTINUE ON 15L NON-REBREATHER MASK, HOB ON HIGH FOWLERS POSITION, MONITORED CLOSELY.
--- NOTE | 2017-10-04 06:00 | NUR ---
MICHEAL FROM [facility] CALLED BACK AND SHE SAID THAT A ENTRY ENGINEER FROM ADMISSION DEPT CAN COME IN EARLY 0800 OR ON THE ORIGINAL SCHEDULE TIME OF 0900, WILL ENDORSE ON AM NURSE, FAMILY MEMBERS ARE HERE, UPDATED ON PT'S CONDITION, PT OPEN EYES TO TOUCH, LABORED BREATHING AND TACHYPNEIC, WILL MEDICATE WITH MORPHINE PRN ORDERED.
[2017-10-04] MEDS: MORPHINE SULFATE 4 MG/ML SYR IVP PRN (06:04)
--- NOTE | 2017-10-04 06:10 | NUR ---
MEDICATED PRN WITH MORPHINE IVP, SAT-67%, HR-120, BP-164/83, RR-34, FAMILY IN THE ROOM, MONITORED CLOSELY.
[2017-10-04] MEDS: PANTOPRAZOLE 40 MG TABEC PO SCH (06:15)
[2017-10-04] MEDS: BLOOD GLUCOSE MONITORING 1 DEV DEV FS SCH (06:30)
--- NOTE | 2017-10-04 06:35 | NUR ---
PT SEEN WITH EYES CLOSED, SAT-68%, HR-115, LABORED BREATHING, BLOOD SUGAR CHECKED WITH 267 RESULT, DUE PO MED UNABLE TO ADMINISTER AT THIS TIME DUE TO PT'S CONDITION, MONITORED CLOSELY.
--- NOTE | 2017-10-04 07:00 | NUR ---
RECIEVED PT ON 100 NRM NASOTRACHEAL SXN WITH MIN TO MODERATE BROWNISH SECS SATURATION .80 BREATH SOUNDS RHONCHI
--- NOTE | 2017-10-04 07:10 | NUR ---
SEAMUS FROM [facility] CALLED TO LET ME KNOW THAT ADMISSION ARTIST MODEL WILL BE HERE TO SEE THE PT AT AROUND 0930 TO 1000, BEDSIDE REPORT GIVEN TO DREW RUTLEDGE FOR CONTINUITY OF CARE.
[2017-10-04] MEDS ORDERED: MORPHINE SULFATE 50 MG in NACL 0.9% 45 ML IV SCH ×3 (07:50→12:50)
[2017-10-04] MEDS ORDERED: SCOPOLAMINE 1.5 MG/72 HR PATCH TD SCH (07:50)
--- NOTE | 2017-10-04 07:50 | NUR ---
PATIENT IS LETHARGIC, EYES OPEN UPON SHAKING. RESPIRATION IS LABORED, TACHYPNEIC ON NON REBREATHER. SKIN COLD AND CLAMMY. IV PATENT AND INTACT. HYPOACTIVE BOWEL SOUND ON 4 QUADRANTS. PEDAL PULSE UNEQUAL. FAMILY AT BEDSIDE. PLAN OF CARE WAS DISCUSSED WITH FAMILY. BED AT LOW POSITION, SIDE RAILS UP. HOB ELEVATED. SPOKE TO BISHOP FROM [place], HOSPICE NURSE WILL COME AROUND 9AM. FAMILY IS AWARE.
[2017-10-04 08:00] VITALS: BP 106/69
[2017-10-04] MEDS: HALOPERIDOL 1 MG TAB PO SCH (09:00)
[2017-10-04] MEDS: NIFEdipine 90 MG TABER PO SCH (09:00)
[2017-10-04] MEDS: MULTIVITAMIN/MINERALS 1 TAB PO SCH (09:00)
[2017-10-04] MEDS: ASPIRIN 81 MG TAB.CHEW PO SCH (09:00)
[2017-10-04] MEDS: CALCIUM ACETATE 667 MG TAB PO SCH (09:00)
[2017-10-04] MEDS: METOPROLOL SUCCINATE 50 MG TABER PO SCH (09:00)
[2017-10-04] MEDS: ASCORBIC ACID 500 MG TAB PO SCH (09:00)
[2017-10-04] MEDS: hydrALAZINE 25 MG TAB PO SCH (09:00)
[2017-10-04] MEDS: LEVOFLOXACIN 500 MG/D5W PREMIX 100 ML IV SCH (09:22)
--- NOTE | 2017-10-04 09:45 | NUR ---
PATIENT IS LETHARGIC, UNABLE TO FOLLOW COMMAND. PO MEDS WERE HELD
--- NOTE | 2017-10-04 10:00 | NUR ---
LEVAQUIN WAS STOPPED PER ORDER, WILL CONTINUE TO MONITOR
--- NOTE | 2017-10-04 11:55 | NUR ---
PATIENT IS RESTING COMFORTABLY. RESPIRATION EVEN, UNLABOR ON NON REBREATHER, RR 20. NO DISTRESS NOTED AT THIS TIME.
--- NOTE | 2017-10-04 14:09 | NUR ---
PATIENT IS RESTING COMFORTABLY. RESPIRATION EVEN, UNLABOR ON NON REBREATHER. FLACC 0. MORPHINE DRIP AT 2ML/HR. PATIENT TOLERATED WELL. FAMILY AT BEDSIDE
--- NOTE | 2017-10-04 15:27 | NUR ---
PATIENT WAS REPOSITIONED. WOUND DRESSINGS WERE CHANGED. MORPHINE DRIP AT 2ML/HR. RESPIRATION EVEN, UNLABOR ON NBR. PATIENT TOLERATED WELL
[2017-10-04 16:00] VITALS: BP 105/63
[2017-10-04] MEDS: MORPHINE SULFATE 100 MG in NACL 0.9% 90 ML IV SCH ×3 (17:24→21:09)
--- NOTE | 2017-10-04 17:24 | NUR ---
PATIENT WAS MOANING, RR 28, HR 78. MORPHINE DRIP WAS INCREASED TO 4ML/HR. WILL CONTINUE TO MONITOR
--- NOTE | 2017-10-04 17:57 | NUR ---
PATIENT IS RESTING COMFORTABLY. RR 20. HR 90. MORPHINE DRIP AT 4ML/HR. PATIENT TOLERATED WELL. FAMILY AT BEDSIDE
--- NOTE | 2017-10-04 19:21 | NUR ---
ENDORSEMENT GIVEN TO THE MANAGER COMMUNITY OUTREACH NURSE. PATIENT IS COMFORTABLE AT THIS TIME
--- NOTE | 2017-10-04 19:22 | NUR ---
RECEIVED REPORT AT PT BEDSIDE FROM DAY SHIFT RN, FOR CONTINUITY OF CARE. PATIENT IS ON A MORPHINE DRIP AND ON A NONREBREATHER MASK. UPDATED BOARD. DISCUSSED PLAN OF CARE WITH PT, PT VERBALIZED UNDERSTANDING. VITAL SIGNS WNL. PT STABLE, NO SIGNS OF DISTRESS NOTED AT THIS TIME. BED IN LOWEST POSITION, CALL LIGHT WITHIN REACH. WILL CONTINUE TO MONITOR. Addendum: 10/05/17 at 0404 by Monica Jordan RN DISREGARD
--- NOTE | 2017-10-04 19:23 | NUR ---
RECEIVED REPORT AT PT BEDSIDE FROM DAY SHIFT RN, FOR CONTINUITY OF CARE. PATIENT IS ON MORPHINE DRIP AT 4ML/HR, WITH NONREBREATHER MASK ON. PATIENT HAS PERIPHERAL IV SITE TO LEFT HAND 20G ASYMPTOMATIC, INTACT, PATENT. VITAL SIGNS WNL. PT STABLE, NO SIGNS OF DISTRESS NOTED AT THIS TIME. BED IN LOWEST POSITION, CALL LIGHT WITHIN REACH. WILL CONTINUE TO MONITOR.
--- NOTE | 2017-10-04 19:55 | NUR ---
MORPHINE TITRATED UP PER PROTOCOL. PT VITAL SIGNS FOLLOWS: BLOOD PRESSURE 142/78, HEART RATE 91, SPO2 86%, RESPIRATION RATE 30, TEMPERATURE 98.9, FLACC 2. PER PROTOCOL MORPHINE WAS INCREASED TO 6ML/HR BECAUSE RESPIRATION RATE ABOVE 20.
--- NOTE | 2017-10-04 21:10 | NUR ---
NEW BAG OF THE MORPHINE DRIP HUNG IN THE LOCKED BOX. RATE IS STILL 6ML/HR. WILL CONTINUE TO MONITOR. VITAL SIGNS WNL. PT STABLE, NO SIGNS OF DISTRESS NOTED AT THIS TIME.
[2017-10-05] VITALS: BP 125/74
--- NOTE | 2017-10-05 | NUR ---
VITAL SIGNS WNL. PT STABLE, NO SIGNS OF DISTRESS NOTED AT THIS TIME. BED IN LOWEST POSITION, CALL LIGHT WITHIN REACH. WILL CONTINUE TO MONITOR.
[2017-10-05] MEDS: MORPHINE SULFATE 100 MG in NACL 0.9% 90 ML IV SCH ×3 (04:10→11:38)
--- NOTE | 2017-10-05 04:10 | NUR ---
HEART RATE 106, AND RESPIRATION RATE 23. MORPHINE DRIP INCREASED TO 8 MG PER HOUR.
--- NOTE | 2017-10-05 06:01 | NUR ---
RESPIRATION RATE 26 AND HEART RATE 110, TITRATED UP MORPHINE DRIP PER ORDER.
--- NOTE | 2017-10-05 07:26 | NUR ---
ENDORSED PT TO DAY SHIFT RN FOR CONTINUITY OF CARE. PT IN STABLE CONDITION.
--- NOTE | 2017-10-05 07:27 | NUR ---
RECEIVED REPORT FROM BOX FOLDING MACHINE OPERATOR NURSE. PATIENT LYING DOWN IN BED SLEEPING, DROWSY, LOCALIZES TO PAIN. RESPIRATIONS EVEN, ON 100% NON-REBREATHER MASK WITH O2 SAT AT 82%. LUNGS DIMINISHED ON ALL LOBES. ABDOMEN SOFT, NON-DISTENDED. MELGAR CATHETER IN PLACE DRAINING CLEAR YELLOW URINE. SKIN COLOR APPROPRIATE TO ETHNICITY, WARM TO TOUCH. SKIN HAS ABRASIONS WITH SCABS ON RIGHT KNEE AND RIGHT BUTTOCKS, RIGHT HIP PRESSURE ULCER NOTED. IV SITE INTACT, PATENT, AND INFUSING MORPHINE DRIP 10MG/HR PER PHARMACY AND MD ORDERS. REVIEWED PLAN OF CARE WITH PATIENT. PATIENT UNABLE TO COMPREHEND. SAFETY MEASURES IN PLACE, CALL LIGHT WITHIN REACH, COMFORT MEASURES IN PLACE. WILL CONTINUE TO MONITOR.
[2017-10-05 08:00] VITALS: BP 116/63
--- NOTE | 2017-10-05 08:25 | NUR ---
SATURATION 84% ON SUPPLEMENTAL OXYGEN AT 15 LPM VIA NRB REVIEWED WITH ROIBN/DREW
[2017-10-05] MEDS ORDERED: FUROSEMIDE 20 MG/2 ML VIAL IVP SCH (09:00)
--- NOTE | 2017-10-05 09:59 | NUR ---
PATIENT LYING IN BED COMFORTABLY. FAMILY MEMBER AT BEDSIDE. CONDITION UNCHANGED. SCHEDULED MEDICATION DUE GIVEN. SAFETY MEASURES IN PLACE, CALL LIGHT WITHIN REACH. WILL CONTINUE TO MONITOR.
--- NOTE | 2017-10-05 11:52 | NUR ---
PATIENT LYING DOWN IN BED COMFORTABLY. CONDITION UNCHANGED. NON-REBREATHER MASK IN PLACE WITH O2 SAT AT 82%. NEW MORPHINE DRIP BAG HANGED PER MD ORDERS. FAMILY MEMBERS AT BEDSIDE. SAFETY MEASURES IN PLACE, CALL LIGHT WITHIN REACH. WILL CONTINUE TO MONITOR.
--- NOTE | 2017-10-05 13:10 | NUR ---
PATIENT BRADYCARDIC ON MONITOR AND THEN TO ASYSTOLE. DR. HINDS NOTIFED AND IS AT BEDSIDE. FAMILY MEMBERS AT BEDSIDE. PATIENT PEACEFULLY AT THIS TIME.
--- NOTE | 2017-10-05 13:20 | NUR ---
CALLED [facility] AND NOTIFIED THEM ABOUT PATIENT EXPIRING. [facility] TO NOTIFY NURSE ATTENDING THE PATIENT AND WILL TAKE CARE OF ARRANGEMENTS TO POST-MORTEM CARE.
--- NOTE | 2017-10-05 15:00 | NUR ---
CALLED [facility] TO REPORT THAT PATIENT . UPON ANSWERING ALL OF [facility]'S PATIENT, PATIENT DOES NOT QUALIFY FOR ORGAN DONATION. . COMBINATION TECHNICIAN FOR [facility] ON UNIT FOR MORTUARY PLACEMENT CLARIFICATION WITH FAMILY MEMBERS FOR THE PATIENT. UPON TALKING WITH [facility] COMBINATION TECHNICIAN, FAMILY MEMBERS [facility] [place], HOWEVER, THE FAMILY MEMBERS IS STILL WORKING ON THE NIGHT SUPERVISOR TIME FOR THE PATIENT'S REMAINS DUE TO [facility] HAVING NO MORGUE AND REMAINS HAVE TO BE PICKED UP TODAY. WILL CONTINUE TO MONITOR.
--- NOTE | 2017-10-05 18:00 | NUR ---
CALLED NEPHEW SAM CHOI, TO FOLLOW-UP ON MORTUARY WIRE INSULATOR TIME BY [facility]. NEPHEW SAYS HE WAS SUPPOSED TO BE PICKED UP ALREADY. CELIOEW TO FOLLOW-UP WITH [facility]. WILL CONTINUE TO MONITOR.
--- NOTE | 2017-10-05 18:09 | NUR ---
MORTUARY PERSONNEL ARRIVED ON UNIT TO TAKE PATIENT'S REMAINS TO MORTUARY. HUMAIRA CHOI CALLED TO NOTIFY HIM. NEPHEW VERBALIZED UNDERSTANDING. PATIENT'S REMAINS TAKEN BY [facility] AT THIS TIME.
== END 2017-10-05 13:15 | disposition expired | DRG 871 ==
LOC: MED 12:39 → MTU 15:13 → MIC 15:47 → MTU 10-02 18:38
PROVIDERS: ADMIT Family Medicine; ATTEND Family Medicine
DX: A41.9 Sepsis, unspecified organism (principal); I21.4 Non-ST elevation (NSTEMI) myocardial infarction; N17.0 Acute kidney failure with tubular necrosis; G93.41 Metabolic encephalopathy; I13.2 Hypertensive heart and chronic kidney disease with heart failure and with stage 5 chronic kidney disease, or end stage renal disease; E83.39 Other disorders of phosphorus metabolism; M62.82 Rhabdomyolysis; I50.43 Acute on chronic combined systolic (congestive) and diastolic (congestive) heart failure; I82.403 Acute embolism and thrombosis of unspecified deep veins of lower extremity, bilateral; N39.0 Urinary tract infection, site not specified; E87.1 Hypo-osmolality and hyponatremia; N18.5 Chronic kidney disease, stage 5; E11.65 Type 2 diabetes mellitus with hyperglycemia; G90.9 Disorder of the autonomic nervous system, unspecified; K21.9 Gastro-esophageal reflux disease without esophagitis; E87.5 Hyperkalemia; E83.41 Hypermagnesemia; F03.90 Unspecified dementia, unspecified severity, without behavioral disturbance, psychotic disturbance, mood disturbance, and anxiety; F20.9 Schizophrenia, unspecified; E11.22 Type 2 diabetes mellitus with diabetic chronic kidney disease; Z66 Do not resuscitate; Z51.5 Encounter for palliative care; B96.89 Other specified bacterial agents as the cause of diseases classified elsewhere; D64.9 Anemia, unspecified; S09.90XA Unspecified injury of head, initial encounter; W18.39XA Other fall on same level, initial encounter; Y93.89 Activity, other specified; Y92.89 Other specified places as the place of occurrence of the external cause; Y99.8 Other external cause status; Z79.899 Other long term (current) drug therapy; Z87.820 Personal history of traumatic brain injury
CPT/HCPCS: 36415; 70450; 71045; 72040; 76700; 76770; 80048; 80053; 81001; 82150; 82550; 82553; 82948; 83036; 83605; 83690; 83735; 83880; 84100; 84436; 84439; 84443; 84479; 84484; 85025; 85610; 85730; 87040; 87081; 87086; 87186; 93005; 93880; 93925; 93970; 94640; 96361; 96374; 99285; J0360; J1630; J1644; J1815; J1940; J1956; J2270; J2405; J3490; J7030; J7620; J8597; Q0092